=== PATIENT | female | born 1950 | race Caucasian/White ===

== ENCOUNTER 2019-12-17 07:38 | Outpatient (CLI) | payer MEDICARE, SELFPAY ==
--- NOTE | ~2019-12-17 | MM_ITS ---
EXAMINATION: MM screening maria luz BI w mansi HISTORY: Screening TECHNIQUE: Craniocaudal and mediolateral oblique 3-D tomosynthesis images were obtained and synthetic 2-D images were generated. CAD analysis was submitted and interpreted. COMPARISON: No prior mammogram is available for comparison at this institution. BREAST PARENCHYMAL COMPOSITION: Breast composed of scattered areas of fibroglandular density. FINDINGS: There is a new cluster of calcifications in the upper outer quadrant of the right breast, p osterior third. There are decreased clustered calcifications in the lower inner quadrant of the left breast at the prior biopsy site. There are no suspicious masses or architectural distortion. IMPRESSION: 1. New cluster of nonspecific right breast calcifications, upper outer quadrant. 2. Magnification views are recommended. BI-RADS Category 0: Incomplete: Needs additional imaging evaluation. Reviewed, dictated and finalized at location A. IMPRESSION: 1. New cluster of nonspecific right breast calcifications, upper outer quadrant . 2. Magnification views are recommended. BI-RADS Category 0: Incomplete: Needs additional imaging evaluation.
== END 2019-12-17 07:39 | disposition home or self-care (01) ==
LOC: ANHIMG 07:46
PROVIDERS: PCP Family Medicine; Visit Provider Nurse Practitioner Obstetrics & Gynecology
DX: Z12.31 Encounter for screening mammogram for malignant neoplasm of breast (principal); R92.8 Other abnormal and inconclusive findings on diagnostic imaging of breast
CPT/HCPCS: 77063; 77067

== ENCOUNTER 2020-01-10 11:19 | Outpatient (CLI) | payer MEDICARE, SELFPAY ==
--- NOTE | ~2020-01-10 | MM_ITS ---
EXAMINATION: MM diagnostic mammo unilat RT HISTORY: Indeterminate right breast calcifications on screening mammogram TECHNIQUE: Additional images of the right breast were performed. CAD analysis was submitted and inter preted. COMPARISON: 12/17/2019, 09/20/2018, 07/30/2016, 07/29/2015 FINDINGS: Grouped, coarse heterogeneous calcifications are present in the posterior third of the uppe r outer quadrant of the breast at the 11:00 location 12 cm from the nipple. No associated mass is davin ntified. IMPRESSION: 1. Suspicious right breast calcifications. 2. Stereotactic right breast biopsy is recommended. BI-RADS category 4, suspicious findings. Reviewed, dictated and finalized at location A.
== END 2020-01-10 11:20 | disposition home or self-care (01) ==
PROVIDERS: PCP Family Medicine; Visit Provider Nurse Practitioner Obstetrics & Gynecology
DX: R92.8 Other abnormal and inconclusive findings on diagnostic imaging of breast (principal)
CPT/HCPCS: 77065

== ENCOUNTER → 2021-07-30 10:19 | Outpatient (CLI) | payer MEDICARE, SELFPAY ==
--- NOTE | ~2021-07-30 | XR_ITS ---
EXAMINATION: XR hand RT min 3V DATE: 07/30/2021 10:40 INDICATION: Right hand pain. TECHNIQUE: 3 views of right hand were obtained. COMPARISON: None. FINDINGS: Bone alignment is normal. No fracture. There is severe osteoarthritis of first carpometacar pal joint, mild osteoarthritis of all of the metacarpophalangeal joints, and moderate osteoarthritis of fourth distal interphalangeal joint. There is severe osteoarthritis of all of the other interphala ngeal joints. IMPRESSION: 1. Polyarticular osteoarthritis. Reviewed, dictated and finalized at location A.
--- NOTE | ~2021-07-30 | XR_ITS ---
XR knee RT min 4V 07/30/2021 10:39 Indication: Right knee pain Procedure: 4 views right knee Comparison: No prior studies for comparison. Findings: There is mild-moderate osteoarthritis of the right knee. No fracture or traumatic malalignm ent. Small joint effusion. No foreign bodies. Impression: 1: Mild-moderate osteoarthritis of the right knee. 2: Small effusion. Reviewed, dictated and finalized at location B. Impression: 1: Mild-moderate osteoarthritis of the right knee. 2: Small effusion.
== END ==
PROVIDERS: PCP Family Medicine; Visit Provider Family Medicine
DX: M18.11 Unilateral primary osteoarthritis of first carpometacarpal joint, right hand (principal); M19.041 Primary osteoarthritis, right hand; M17.11 Unilateral primary osteoarthritis, right knee; M25.461 Effusion, right knee
CPT/HCPCS: 73130; 73564

== ENCOUNTER 2021-12-08 00:24 | Day surgery (SDC) | payer MEDICARE, SELFPAY ==
[2021-11-24 15:09] VITALS: BMI 37.3
[2021-12-08 11:24] VITALS: BP 149/82; PULSE 87; RESP 18; TEMP 36.4; O2SAT 99
[2021-12-08] MEDS: LACTATED RINGERS 1,000 ML 150 ML IV CONT (11:39)
[2021-12-08 11:45] LABS: Glucose Point of Care 113 mg/dl (65-105)
--- NOTE | 2021-12-08 12:04 | WPDANESEPPF ---
Anes - Initial Pre Proc Eval Procedure: Operation Date: 12/08/21 12:30 Proposed Procedures p Screening Colonoscopy - Noman Solomon MD Date/Time: 12/08/21 12:04 Surgeon: Noman Solomon MD Pre Op Diagnosis: hx colon polyps Patient Data Age: 71 Gender: F Height: 1.6 m Weight: 92 kg Last Vital Signs Temp 97.5 F L 12/08/21 11:24 Pulse 87 12/08/21 11:24 Resp 18 12/08/21 11:24 BP 149/82 H 12/08/21 11:24 Pulse Ox 99 12/08/21 11:24 O2 Del Method Room Air 12/08/21 11:24 Allergies Allergy/AdvReac Type Severity Reaction Status Date / Time Sulfa (Sulfonamide Allergy Unknown Unknown Verified 12/08/21 11:22 Antibiotics) Home Medications Medication Instructions Recorded Confirmed Type cyanocobalamin (vitamin B-12) 1,000 mcg PO DAILY #30 tabs 04/16/20 11/24/21 Rx 1,000 mcg tablet cholecalciferol (vitamin D3) 50 2,000 unit PO DAILY 08/28/20 11/24/21 History mcg (2,000 unit) tablet (Vitamin D3) atorvastatin 10 mg tablet 10 mg PO DAILY #90 tabs 07/30/21 11/24/21 Rx hydrochlorothiazide 12.5 mg capsule 12.5 mg PO DAILY #90 caps 07/30/21 11/24/21 Rx irbesartan 150 mg tablet 150 mg PO DAILY #90 tabs 07/30/21 11/24/21 Rx metformin 500 mg tablet,extended 1,000 mg PO BID #360 tabs 07/30/21 11/24/21 Rx release 24 hr valacyclovir 1 gram tablet 1,000 mg PO .COMPLEX #20 tabs 09/09/21 11/24/21 Rx Laboratory Tests 12/08/21 11:42 POC Capillary Glucose 113 mg/dl H mg/dl (65-105) Patient hx anesthesia problems: none Family hx anesthesia problems: none Results Review: All pre-operative results and documents have been reviewed as part of the pre-operative evaluation. [facility] Past Medical History Medical History (Updated 08/25/21 @ 13:47 by Khai Martinez MD) Arthritis BMI 35.0-35.9,adult BMI 36.0-36.9,adult BMI 37.0-37.9, adult Breast cancer screening by mammogram mammogram on 03/02/2021 was negative. Chronic pain of right knee X-ray of the right knee on 07/30/2021 with mild osteoarthritis with small effusion. Diabetes Fever blister Hand arthritis Obesity (BMI 30-39.9) Pain in right hand Polyp of colon Screening for diabetic retinopathy (09/23/20) no diabetic retinopathy on 09/23/2020. Cataract noted. Seasonal allergic rhinitis Weakness of right hand Surgical History Surgical History History of breast surgery History of endometrial ablation History of hysterectomy History of hysteroscopy Family History Family History Mother Skin cancer Hypertension Heart disease Father Family history of congestive heart failure, Onset Age: 91 Malignant neoplasm of prostate Social History Social History Smoking status: Never smoker Alcohol intake: current Alcohol use details: socially Substance use: never Substance use type: does not use Living arrangements: with family Spiritual care concerns: No Anes - Eval Final PreProcedure Day of Procedure 12/08/21 12:04 Patient weight: obese Heart: regular rate and rhythm Lungs: clear to auscultation Airway: Mallampati scale class II Neurological: alert and oriented Last oral intake: >/= 8 hours ASA classification: III Emergent: no Anesthetic plan: proceed Anesthesia type and monitoring: general GIVS and standard monitoring Results Review: All pre-operative results and documents have been reviewed as part of the pre-operative evaluation. Informed Consent: The patient's anesthetic plan and its attendant risks and benefits were discussed with the patient/family/POA. Questions were solicited and answers provided to the satisfaction of the patient/family/POA.
--- NOTE | 2021-12-08 12:29 | PM.HPGS ---
History of Present Illness History of Present Illness Consent: Risks, benefits, and alternatives have been discussed and questions answered. Patient agrees to proceed with procedure. Chief complaint: hx colon polyps Narrative: Meg Ruffin is a 71 year old female here for colonoscopy, last one 10 years ago Review of Systems Constitutional: Constitutional: Denies headache(s) and Denies weakness Eyes: Eyes: Denies blurry vision ENT: Reports Normal hearing present, Denies headache(s) and Denies neck pain Cardiovascular: Cardiovascular: Denies chest pain and Denies dyspnea Respiratory: Respiratory: Denies dyspnea Gastrointestinal: Gastrointestinal: Reports no additional gastrointestinal complaints Genitourinary: Genitourinary: Denies dysuria Musculoskeletal: Musculoskeletal: Denies neck pain Integumentary/Breasts: Skin/Breast: Denies dry skin Neurologic: Reports Normal hearing present, Denies headache(s) and Denies weakness Psychiatric: Psychiatric: Denies anxiety Endocrine: Endocrine: Denies change in body appearance Hematologic/Lymphatic: Hematologic/Lymphatic: Denies easy bleeding Allergic/Immunologic: Allergic/Immunologic: Denies urticaria PMFSH Past Medical History Medical History (Updated 12/08/21 @ 12:30 by Noman Solomon MD) Arthritis BMI 35.0-35.9,adult BMI 36.0-36.9,adult BMI 37.0-37.9, adult Breast cancer screening by mammogram mammogram on 03/02/2021 was negative. Chronic pain of right knee X-ray of the right knee on 07/30/2021 with mild osteoarthritis with small effusion. Colon cancer screening Diabetes Fever blister Hand arthritis Obesity (BMI 30-39.9) Pain in right hand Polyp of colon Screening for diabetic retinopathy (09/23/20) no diabetic retinopathy on 09/23/2020. Cataract noted. Seasonal allergic rhinitis Weakness of right hand Surgical History Surgical History History of breast surgery History of endometrial ablation History of hysterectomy History of hysteroscopy Family History Family History Mother Skin cancer Hypertension Heart disease Father Family history of congestive heart failure, Onset Age: 91 Malignant neoplasm of prostate Social History Social History Smoking status: Never smoker Alcohol intake: current Alcohol use details: socially Substance use: never Substance use type: does not use Living arrangements: with family Spiritual care concerns: No Meds Home Medications and Allergies Home Medications Medication Instructions Recorded Confirmed Type cyanocobalamin (vitamin B-12) 1,000 mcg PO DAILY #30 tabs 04/16/20 11/24/21 Rx 1,000 mcg tablet cholecalciferol (vitamin D3) 50 2,000 unit PO DAILY 08/28/20 11/24/21 History mcg (2,000 unit) tablet (Vitamin D3) atorvastatin 10 mg tablet 10 mg PO DAILY #90 tabs 07/30/21 11/24/21 Rx hydrochlorothiazide 12.5 mg capsule 12.5 mg PO DAILY #90 caps 07/30/21 11/24/21 Rx irbesartan 150 mg tablet 150 mg PO DAILY #90 tabs 07/30/21 11/24/21 Rx metformin 500 mg tablet,extended 1,000 mg PO BID #360 tabs 07/30/21 11/24/21 Rx release 24 hr valacyclovir 1 gram tablet 1,000 mg PO .COMPLEX #20 tabs 09/09/21 11/24/21 Rx Allergies Allergy/AdvReac Type Severity Reaction Status Date / Time Sulfa (Sulfonamide Allergy Unknown Unknown Verified 12/08/21 11:22 Antibiotics) Vital Signs Vital Signs - 24 hr 12/08/21 11:24 Temperature 97.5 F L Pulse Rate 87 Respiratory Rate 18 Blood Pressure 149/82 H Pulse Oximetry 99 Oxygen Delivery Room Air Exam Const: General: comfortable and no acute distress HENMT: General nose exam: Normal nares present Eyes: General: appearance normal, both eyes and all related structures Neck: Neck: no JVD Resp: Auscultation: clear to auscultation norma
[2021-12-08 13:08] VITALS: BP 134/70; PULSE 83; RESP 16; O2SAT 98
[2021-12-08 13:18] VITALS: BP 121/72; PULSE 81; RESP 17; O2SAT 98
[2021-12-08 13:28] VITALS: BP 125/74; PULSE 82; RESP 19; O2SAT 99
== END 2021-12-08 13:45 | disposition home or self-care (01) ==
PROVIDERS: PCP Family Medicine; Visit Provider Internal Medicine Gastroenterology
PROC: 0DJD8ZZ Inspection of Lower Intestinal Tract, Via Natural or Artificial Opening Endoscopic (ICD-10-PCS; CPT 45378; principal; 2021-12-08 12:30)
DX: Z12.11 Encounter for screening for malignant neoplasm of colon (principal); D12.2 Benign neoplasm of ascending colon; D12.4 Benign neoplasm of descending colon; K64.8 Other hemorrhoids; K57.30 Diverticulosis of large intestine without perforation or abscess without bleeding; M19.90 Unspecified osteoarthritis, unspecified site; E11.9 Type 2 diabetes mellitus without complications; E11.319 Type 2 diabetes mellitus with unspecified diabetic retinopathy without macular edema; Z79.84 Long term (current) use of oral hypoglycemic drugs; E66.9 Obesity, unspecified; Z68.35 Body mass index [BMI] 35.0-35.9, adult
CPT/HCPCS: 45385; 82948; 88305; J2001; J2704; J7120

== ENCOUNTER 2022-06-01 08:15 | Emergency (ER) | payer MEDICARE, SELFPAY ==
[2022-06-01 08:25] VITALS: BP 145/72; PULSE 77; RESP 16; TEMP 36.1; O2SAT 96
--- NOTE | 2022-06-01 08:25 | ED.GENADULT ---
HPI - General Adult General Chief complaint: Dizziness Stated complaint: Dizziness Time Seen by Provider: 06/01/22 08:25 Source: patient, RN notes reviewed and old records reviewed Mode of arrival: ambulatory Limitations: no limitations History of Present Illness HPI narrative: 71-year-old woman presents to the [facility] with complaints of intermittent dizziness for 2 days. Patient states it feels like the room spinning when she lays down. Started when she was going to bed Tuesday night. Denies any nausea or vomiting. Denies chest pain or shortness of breath. States it has been intermittent. Denies symptoms while sitting in clinic. Denies any neurologic symptoms Onset (ago): day(s) (2) Related Data Home Medications Medication Instructions Recorded Confirmed cholecalciferol (vitamin D3) 50 2,000 unit PO DAILY 08/28/20 06/01/22 mcg (2,000 unit) tablet (Vitamin D3) Allergies Allergy/AdvReac Type Severity Reaction Status Date / Time Sulfa (Sulfonamide Allergy Unknown Unknown Verified 03/19/22 08:01 Antibiotics) Review of Systems Review of Systems: All systems reviewed & are unremarkable except as noted in HPI and below Constitutional: Constitutional: Reports no additional constitutional complaints and Denies headache(s) Eyes: Eyes: Reports no additional eye complaints ENT: Reports as per HPI Cardiovascular: Cardiovascular: Reports no additional cardiovascular complaints, Denies chest pain and Denies dyspnea Respiratory: Respiratory: Reports no additional respiratory complaints, Denies chest congestion, Denies cough and Denies dyspnea Gastrointestinal: Gastrointestinal: Reports no additional gastrointestinal complaints, Denies abdominal pain, Denies nausea and Denies vomiting Musculoskeletal: Musculoskeletal: Reports no additional musculoskeletal complaints Integumentary/Breasts: Skin/Breast: Reports system reviewed and no additional complaints, except as docu Neurologic: Reports system reviewed and no additional complaints, except as documented Psychiatric: Psychiatric: Reports no additional psychiatric complaints Allergic/Immunologic: Allergic/Immunologic: Reports no additional allergic/immunologic complaints PMFSH Past Medical History Medical History Arthritis BMI 35.0-35.9,adult BMI 36.0-36.9,adult BMI 37.0-37.9, adult Breast cancer screening by mammogram mammogram on 03/02/2021 was negative. Chronic pain of right knee X-ray of the right knee on 07/30/2021 with mild osteoarthritis with small effusion. Colon cancer screening COVID-19 (~09/2021) fully vaccinated and moderate illness Diabetes Encounter for hepatitis C screening test for low risk patient Fever blister Hand arthritis Obesity (BMI 30-39.9) Pain in right hand Polyp of colon Repeat colonoscopy 12/08/2021 with 1 small 4 mm polyp of the descending colon with recheck in 5 years. Screening for breast cancer Screening for diabetic retinopathy (09/23/20) no diabetic retinopathy on 09/23/2020. Cataract noted. Seasonal allergic rhinitis Weakness of right hand Surgical History Surgical History H/O gynecological procedure 05/25/12 novasure ablation, hscope, d&c, polypectomy History of breast surgery 03/14/2019 - R breast biopsy - benign 03/14/2018 - L breast biopsy - benign History of endometrial ablation History of hysterectomy History of hysteroscopy Family History Family History Mother Skin cancer Hypertension Heart disease Father Family history of congestive heart failure, Onset Age: 91 Malignant neoplasm of prostate Social History Social History Smoking status: Never smoker Alcohol intake: current Alcohol use details: socially Substance use: never Substance use type: does
[2022-06-01 08:27] VITALS: BP 145/72; PULSE 77; RESP 16; TEMP 36.1; O2SAT 96
== END 2022-06-01 09:00 | disposition home or self-care (01) ==
PROVIDERS: Emergency Provider Nurse Practitioner; PCP Family Medicine
DX: R42 Dizziness and giddiness (principal); H65.01 Acute serous otitis media, right ear; M19.90 Unspecified osteoarthritis, unspecified site; M19.041 Primary osteoarthritis, right hand; E66.9 Obesity, unspecified; Z68.36 Body mass index [BMI] 36.0-36.9, adult
CPT/HCPCS: 99213; G0463

== ENCOUNTER 2022-08-02 11:15 | Outpatient (CLI) | payer MEDICARE, SELFPAY ==
[2022-08-02 11:56] LABS: Basophils Percent Auto 0.5 % (0.2-1.2); Eosinophils Absolute Auto 0.1 K/mm3 (0-0.3); Eosinophils Percent Auto 2.3 % (0-4.4); Hematocrit 38.4 % (37.0-47.0); Hemoglobin 12.2 g/dL (12.0-15.0); Immature Granulocyte Absolute 0.01 K/mm3 (0.00-0.031); Immature Granulocyte Percent A 0.2 % (0-0.5); Lymphocytes Absolute Auto 1.92 K/mm3 (0.9-3.2); Lymphocytes Percent Auto 43.4 % (18.3-44.2); Mean Corpuscular HGB Conc 31.8 g/dl (32-36); Mean Corpuscular Hemoglobin 28.4 pg (26-34); Mean Corpuscular Volume 89.5 fl (80-100); Mean Platelet Volume 10.3 fl (7.4-10.4); Monocytes Absolute Auto 0.2 K/mm3 (0.1-0.6); Neutrophils Absolute Auto 2.2 K/mm3 (1.3-6.7); Neutrophils Percent Auto 48.6 % (45.5-73.1); Platelet Count Result 197 k/mm3 (150-375); Red Blood Count 4.29 M/mm3 (4.2-5.4); Red Cell Distribution Width 13.2 % (11.5-14.5); White Blood Count 4.4 K/mm3 (4.5-10.0)
[2022-08-02 12:06] LABS: Sodium 138 mmol/L (137-145)
[2022-08-02 12:08] LABS: Alanine Aminotransferase 31 U/L (6-35); Albumin Level 4.4 g/dL (3.5-5.1); Alkaline Phosphatase 44 U/L (38-126); Anion Gap 3 mmol/L (8-16); Aspartate Amino Transferase 33 U/L (14-36); Bilirubin,Total 1.1 mg/dL (0.2-1.3); Blood Urea Nitrogen 13 mg/dL (7-17); Calcium 9.1 mg/dL (8.4-10.2); Carbon Dioxide 35 mmol/L (22-30); Chloride 100 mmol/L (98-107); Cholesterol 171 mg/dL (0-200); Estimated Glomerular Filt Rate > 60; Glucose 105 mg/dL (65-110); HDL Direct 63 mg/dL; Potassium 3.9 mmol/L (3.4-5.0); Triglycerides 154 mg/dL (<150)
[2022-08-02 12:10] LABS: Hemoglobin A1C 6.2 % (<5.7)
[2022-08-02 12:18] LABS: LDL Cholesterol Direct 81 mg/dL
[2022-08-02 13:13] LABS: Hepatitis C Virus Antibody Negative (Negative)
[2022-08-06 11:16] LABS: Vitamin D 1,25 (OH)2 Total 24 pg/mL (18-72); Vitamin D2 1,25 (OH)2 <8 pg/mL; Vitamin D3 1,25 (OH)2 24 pg/mL
== END 2022-08-02 11:16 | disposition home or self-care (01) ==
PROVIDERS: PCP Family Medicine; Visit Provider Family Medicine
DX: E78.2 Mixed hyperlipidemia (principal); E11.9 Type 2 diabetes mellitus without complications; Z11.59 Encounter for screening for other viral diseases; D51.9 Vitamin B12 deficiency anemia, unspecified; E55.9 Vitamin D deficiency, unspecified
CPT/HCPCS: 36415; 80048; 80061; 80076; 82652; 83036; 85025; 86803

== ENCOUNTER 2023-01-05 11:10 | Outpatient (CLI) | payer MEDICARE, SELFPAY ==
[2023-01-05 12:05] LABS: Appearance Urine Clear (Clear); Bilirubin Urine Negative (Negative); Blood Urine Negative (Negative); Color Urine Yellow (Yellow); Glucose Urine UA Negative (Negative); Ketones Urine Negative (Negative); Leukocyte Esterase Ur Negative LEU/UL (NEGATIVE); Nitrate Urine Negative (Negative); Protein Urine Negative (Negative); Specific Grav Ur 1.014 (1.001-1.035); Urobilinogen Urine 0.2 mg/dL (<2.0); pH Urine 5.5 (5.0-9.0)
[2023-01-05 12:11] LABS: Add Urine Microscopic? NO
[2023-01-05 12:25] LABS: Alanine Aminotransferase 22 U/L (6-35); Albumin Level 4.4 g/dL (3.5-5.1); Alkaline Phosphatase 46 U/L (38-126); Anion Gap 5 mmol/L (8-16); Aspartate Amino Transferase 27 U/L (14-36); Bilirubin,Total 1.3 mg/dL (0.2-1.3); Blood Urea Nitrogen 14 mg/dL (7-17); Calcium 9.4 mg/dL (8.4-10.2); Carbon Dioxide 32 mmol/L (22-30); Chloride 100 mmol/L (98-107); Cholesterol 180 mg/dL (0-200); Estimated Glomerular Filt Rate > 60; Glucose 110 mg/dL (65-110); HDL Direct 57 mg/dL; Potassium 4.1 mmol/L (3.4-5.0); Sodium 137 mmol/L (137-145); Triglycerides 115 mg/dL (<150)
[2023-01-05 12:32] LABS: LDL Cholesterol Direct 94 mg/dL
[2023-01-05 12:45] LABS: Creatinine Urine 80.9 mg/dL
[2023-01-05 12:52] LABS: MALB Creatinine Ratio < 7.4 mg/g (0-30); Microalbumin Urine Random < 6.0 mg/L (0-16.7)
== END 2023-01-05 11:11 | disposition home or self-care (01) ==
LOC: ANHLAB 11:11
PROVIDERS: PCP Family Medicine; Visit Provider Family Medicine
DX: E78.2 Mixed hyperlipidemia (principal); E11.9 Type 2 diabetes mellitus without complications; D51.9 Vitamin B12 deficiency anemia, unspecified
CPT/HCPCS: 36415; 80048; 80061; 80076; 81003; 82043; 82607

== ENCOUNTER 2023-08-05 10:53 | Outpatient (CLI) | payer MEDICARE, SELFPAY ==
[2023-08-05 11:35] LABS: Eosinophils Absolute Auto 0.1 K/mm3 (0-0.3); Eosinophils Percent Auto 1.8 % (0-4.4); Hematocrit 36.8 % (37.0-47.0); Hemoglobin 11.9 g/dL (12.0-15.0); Immature Granulocyte Absolute 0.01 K/mm3 (0.00-0.031); Immature Granulocyte Percent A 0.2 % (0-0.5); Lymphocytes Absolute Auto 1.95 K/mm3 (0.9-3.2); Lymphocytes Percent Auto 34.2 % (18.3-44.2); Mean Corpuscular HGB Conc 32.3 g/dl (32-36); Mean Corpuscular Hemoglobin 28.7 pg (26-34); Mean Corpuscular Volume 88.7 fl (80-100); Mean Platelet Volume 10.9 fl (7.4-10.4); Monocytes Absolute Auto 0.3 K/mm3 (0.1-0.6); Monocytes Percent Auto 5.3 % (2.6-8.5); Neutrophils Absolute Auto 3.4 K/mm3 (1.3-6.7); Neutrophils Percent Auto 58.5 % (45.5-73.1); Platelet Count Result 181 k/mm3 (150-375); Red Blood Count 4.15 M/mm3 (4.2-5.4); Red Cell Distribution Width 13.6 % (11.5-14.5); White Blood Count 5.7 K/mm3 (4.5-10.0)
[2023-08-05 11:50] LABS: Alanine Aminotransferase 16 U/L (6-35); Albumin Level 4.5 g/dL (3.5-5.1); Alkaline Phosphatase 43 U/L (38-126); Anion Gap 6 mmol/L (4-12); Aspartate Amino Transferase 27 U/L (14-36); Bilirubin,Total 1.4 mg/dL (0.2-1.3); Blood Urea Nitrogen 16 mg/dL (7-17); Calcium 9.4 mg/dL (8.4-10.2); Carbon Dioxide 28 mmol/L (22-30); Chloride 103 mmol/L (98-107); Cholesterol 175 mg/dL (0-200); Estimated Glomerular Filt Rate > 60; Glucose 101 mg/dL (65-110); HDL Direct 66 mg/dL; Sodium 137 mmol/L (137-145); Triglycerides 101 mg/dL (<150)
[2023-08-05 12:00] LABS: Hemoglobin A1C 6.2 % (<5.7)
[2023-08-05 12:01] LABS: LDL Cholesterol Direct 94 mg/dL
[2023-08-05 12:51] LABS: Vitamin B12 > 1000.0 pg/mL (239-931)
[2023-08-08 10:53] LABS: Vitamin D 1,25 (OH)2 Total 49 pg/mL (18-72); Vitamin D2 1,25 (OH)2 <8 pg/mL; Vitamin D3 1,25 (OH)2 49 pg/mL
== END 2023-08-05 10:54 | disposition home or self-care (01) ==
LOC: ANHLAB 10:56
PROVIDERS: PCP Family Medicine; Visit Provider Family Medicine
DX: E55.9 Vitamin D deficiency, unspecified (principal); D51.9 Vitamin B12 deficiency anemia, unspecified; E78.2 Mixed hyperlipidemia; E11.9 Type 2 diabetes mellitus without complications
CPT/HCPCS: 36415; 80048; 80061; 80076; 82607; 82652; 83036; 85025

== ENCOUNTER 2024-03-16 09:34 | Outpatient (CLI) | payer MEDICARE, SELFPAY ==
[2024-03-16 10:24] LABS: Basophils Percent Auto 0.2 % (0.2-1.2); Eosinophils Absolute Auto 0.1 K/mm3 (0-0.3); Eosinophils Percent Auto 1.9 % (0-4.4); Hematocrit 37.1 % (37.0-47.0); Hemoglobin 11.9 g/dL (12.0-15.0); Immature Granulocyte Absolute 0.01 K/mm3 (0.00-0.031); Immature Granulocyte Percent A 0.2 % (0-0.5); Lymphocytes Absolute Auto 1.78 K/mm3 (0.9-3.2); Lymphocytes Percent Auto 41.4 % (18.3-44.2); Mean Corpuscular HGB Conc 32.1 g/dl (32-36); Mean Corpuscular Hemoglobin 28.1 pg (26-34); Mean Corpuscular Volume 87.7 fl (80-100); Mean Platelet Volume 10.4 fl (7.4-10.4); Monocytes Absolute Auto 0.2 K/mm3 (0.1-0.6); Monocytes Percent Auto 4.2 % (2.6-8.5); Neutrophils Absolute Auto 2.2 K/mm3 (1.3-6.7); Neutrophils Percent Auto 52.1 % (45.5-73.1); Platelet Count Result 174 k/mm3 (150-375); Red Blood Count 4.23 M/mm3 (4.2-5.4); Red Cell Distribution Width 13.3 % (11.5-14.5); White Blood Count 4.3 K/mm3 (4.5-10.0)
[2024-03-16 10:29] LABS: Add Urine Microscopic? NO; Appearance Urine Clear (Clear); Bilirubin Urine Negative (Negative); Blood Urine Negative (Negative); Color Urine Yellow (Yellow); Glucose Urine UA Negative (Negative); Ketones Urine Negative (Negative); Leukocyte Esterase Ur Negative LEU/UL (Negative); Nitrate Urine Negative (Negative); Protein Urine Negative (Negative); Urobilinogen Urine 0.2 mg/dL (<2.0); pH Urine 5.5 (5.0-9.0)
[2024-03-16 10:40] LABS: Alanine Aminotransferase 18 U/L (6-35); Albumin Level 4.2 g/dL (3.5-5.1); Alkaline Phosphatase 43 U/L (38-126); Anion Gap 0 mmol/L (4-12); Aspartate Amino Transferase 24 U/L (14-36); Bilirubin,Total 1.2 mg/dL (0.2-1.3); Blood Urea Nitrogen 19 mg/dL (7-17); Calcium 9.4 mg/dL (8.4-10.2); Carbon Dioxide 33 mmol/L (22-30); Chloride 102 mmol/L (98-107); Cholesterol 160 mg/dL (0-200); Estimated Glomerular Filt Rate > 60; Glucose 106 mg/dL (65-110); HDL Direct 61 mg/dL; Potassium 4.2 mmol/L (3.4-5.0); Sodium 135 mmol/L (137-145); Triglycerides 101 mg/dL (<150)
[2024-03-16 10:51] LABS: Iron 60 ug/dL (37-170); LDL Cholesterol Direct 71 mg/dL
[2024-03-16 11:01] LABS: Percent Iron Saturation 15 % (20-50); TOTAL IRON BINDING CAPACITY 406 ug/dL (261-462)
[2024-03-16 11:29] LABS: Vitamin B12 > 1000.0 pg/mL (239-931)
[2024-03-16 12:26] LABS: Hemoglobin A1C 6.5 % (<5.7)
[2024-03-16 14:41] LABS: Creatinine Urine 46.5 mg/dL
[2024-03-16 14:43] LABS: MALB Creatinine Ratio < 12.9 mg/g (0-30); Microalbumin Urine Random < 6.0 mg/L (0-16.7)
== END 2024-03-16 09:35 | disposition home or self-care (01) ==
PROVIDERS: PCP Family Medicine; Visit Provider Family Medicine
DX: D51.9 Vitamin B12 deficiency anemia, unspecified (principal); E78.2 Mixed hyperlipidemia; E11.9 Type 2 diabetes mellitus without complications
CPT/HCPCS: 36415; 80048; 80061; 80076; 81003; 82043; 82607; 82728; 83036; 83540; 83550; 85025

== ENCOUNTER 2024-11-07 08:50 | Outpatient (CLI) | payer MEDICARE, SELFPAY ==
--- OUTSIDE RECORDS SUMMARY | 2024-11-07 08:56 | XMS_ITS | Clinical Summary ---
Author Organization [facility] Address [address] [place] [address] Care Team Providers Care Administrator Social Welfare Name Role Phone Isidoro Delarosa MD Primary Care Provider [phone] Allergies Active Allergy Reactions Criticality Noted Date Comments Sulfa (Sulfonamide Antibiotics) Other (See Comments) High 10/24/2018 Medications metFORMIN (GLUCOPHAGE XR) 500 mg Extended Release 24 hour tablet TK 4 TS PO D FOR DM 3 09/09/19 19 Active atorvastatin (LIPITOR) 10 mg tablet TK 1 T PO QD FOR CHOLESTEROL 2 08/27/19 19 Active cholecalcifer ol, vitamin D3, (VITAMIN D3) 1,000 unit Take 1,000 Units by mouth daily. Active cyanocobalami n (VITAMIN B-12) 500 mcg tablet Take 500 mcg by mouth daily. Active irbesartan (AVAPRO) 150 mg tablet 11/21/19 19 Active hydroCHLOROth iazide (MICROZIDE) 12.5 mg capsule hydrochlorothiazide 12.5 mg capsule Active valACYclovir (VALTREX) 1 gram tablet valacyclovir 1 gram tablet TK 2 TS PO BID FOR 1 DAY FOR FEVER BLISTER PRN Active flu vaccine trivalent (65 yr+)(PF)(FLUZ ONE HIGH DOSE) 180 mcg/0.5 mL IM syringe Fluzone High-Dose (PF) 180 mcg/0.5 mL intramuscular syringe Act jc Active Problems Problem Noted Date Diagnosed Date Fibrosis, breast, left 11/28/2018 Microcalcification of left breast on mammogram 0 10/09/2018 Social History Tobacco Use Types Packs/Day Years Used Date Smoking Tobacco: Never Smokeless Tobacco: Never Alcohol Use Standard Drinks/Week Comments Yes 0 (1 standard drink = 0.6 oz pur e alcohol) Comments No Sex and Gender Information Value Date Recorded Sex Assigned at Not on file Legal Sex Female 3:45 PM CDT Gender Identity Not on file Sexual Orientation Not on file Last Filed Vital Signs Vital Sign Reading Time Taken Comments Blood Pressure 106/40 11/28/2018 1:17 PM CDT Pulse 83 11/28/2018 1:17 PM CDT Temperature 36.7 C (98.1 F) 11/28/2018 1:17 PM CDT Respiratory Rate - - Oxygen Saturation 96% 11/28/2018 1:17 PM CDT Inhaled Oxygen Concentration - - Weight 97.1 kg (214 lb 1.6 oz) 11/28/2018 1:17 P M CDT Height 162.6 cm (5' 4) 11/28/2018 1:17 PM CDT Body Mass Index 36.75 11/28/2018 1:17 PM CDT Plan of Treatment Health Maintenance Due Date Last Done Comments DTAP/TDAP/TD VACCINES (1 - Tdap) 11/14/1970 BREAST CANCER SCREENING 1991 COLORECTAL SCREENING 11/14/1996 Colorectal Cancer Screening 11/14/1996 FIT-DNA Q 3 years 11/14/1996 FIT/FOBT Q 1 year 11/14/1996 Flex Sig/CT Colonography Q 5 years 11/14/1996 PNEUMOCOCCAL VACCINE 50+ YEARS (1 of 1 - PCV) 11/15/19 02 ZOSTER VACCINE (1 of 2) 11/14/2001 OSTEOPOROSIS SCREENING 11/14/2016 INFLUENZA VACCINE (#1) 2024 RSV VACCINE (60+ or ) (1 - 1-dose 75+ series) 11/14/2026 Care Teams Administrator Social Welfare Relationship Specialty Start Date End Date Isidoro Delarosa MD [address] [place] [phone] PCP - General Family Practice 10/09/18
--- OUTSIDE RECORDS SUMMARY | 2024-11-07 08:56 | XMS_ITS | Clinical Summary ---
Author Organization [facility] Address [address] [place] [address] Care Team Providers Care Childcare Provider Name Role Phone Isidoro Delarosa MD Primary Care Provider [phone] Patricia Parekh ZOO KEEPER Unavailable [phone] Allergies Active Allergy Reactions Criticality Noted Date Comments Sulfa (Sulfonamide Antibiotics) Other (See comments) High 10/24/2018 Medications atorvastatin (LIPITOR) 10 mg tablet TK 1 T PO QD FOR CHOLESTEROL 08/27/19 19 Active cholecalcifer ol (VITAMIN D-3) 25 mcg (1,000 unit) tablet Take 1,000 Units by mouth daily Active cyanocobalami n (Vitamin B-12) 500 mcg tablet Take 500 mcg by mouth daily Active hydroCHLOROth iazide (MICROZIDE) 12.5 mg capsule hydrochlorothiazide 12.5 mg capsule Active irbesartan (AVAPRO) 150 mg tablet 11/21/19 19 Active metFORMIN XR (GLUCOPHAGE XR) 500 mg 24 hr tablet TK 4 TS PO D FOR DM 09/09/19 19 Active Active Problems No known active problems Encounters Date Type Department Care Team Description 09/26/2024 9:12 AM CDT - 09/26/2024 11:59 PM CDT Hospital Encounter [facility] Advanced Medicine Breast Imaging [facility] ([facility]) [address] [place] [address] Screening mammogram, encounter for Discharge Disposition: Discharge to home or self care from Last 3 Months Surgical History Surgery Date Site/Laterality Comments BREAST BIOPSY OVARIAN CYST REMOVAL 01/05/2005 Left HYSTEROSCOPY 05/08/2012 ENDOMETRIAL ABLATION 05/08/2012 BREAST BIOPSY 02/11/2020 Right Medical History Medical History Date Comments Hypertension Overweight Family History Medical History Relation Name Comments Prostate cancer Father Skin cancer Mother Relation Name Status Comments Father Mother Social History Tobacco Use Types Packs/Day Years Used Date Smoking Tobacco: Never Comments No Sex and Gender Information Value Date Recorded Sex Assigned at Not on file Legal Sex 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 Gender Identity Not on file Sexual Orientation Not on file Obstetrics History Para Term AB IAB SAB Ectopic Multiple Livin g Live Births 0 0 0 0 0 0 0 0 0 0 0 Last Filed Vital Signs Vital Sign Reading Time Taken Comments Blood Pressure - - Pulse - - Temperature - - Respiratory Rate - - Oxygen Saturation - - Inhaled Oxygen Concentration - - Weight 91.6 kg (202 lb) 09/26/2024 9:20 AM CDT Height 157.5 cm (5' 2) 02/04/2020 1:17 PM INJECTION PRESS OPERATOR Body Mass Index 36.95 02/04/2020 1:17 PM INJECTION PRESS OPERATOR Plan of Treatment Health Maintenance Due Date Last Done Comments Colon Cancer Screening-Colonoscopy 1950 Depression Screening 1950 Fall Risk Assessment 1950 Hepatitis C Screening 1950 Osteoporosis Screening-Bone Density Scan 1950 DTaP/Tdap/Td Vaccine (1 - Tdap) 11/14/1962 Hepatitis B Screening 11/14/1969 Zoster Vaccine (1 of 2) 11/14/2001 Well Visit 65+ 11/14/2016 Pneumococcal vaccine 65+ (2 of 2 - PCV20 or PCV21) 01/14/2018 01/14/2017 Influenza Vaccine (#1) 2024 9, 01/14/2017, 02/21/2012 Breast Cancer Screening-Mammogram 09/26/2025 09/26/2024, 09/23/2023, 06/04/2022, Additional history exists Procedures Procedure Name Priority Date/Time Associated Diagnosis Comments SCREENING MAMMOGRAM BILATERAL W GERARD Schedule Routine, Read Routine (OP Routine) 09/26/2024 9:29 AM CDT Screening mammogram, encounter for from Last 3 Months Results * Screening Mammogram Bilateral W Gerard (09/26/2024 9:29 AM CDT) Anatomical Region Laterality Modality Breast Bilateral Mammography Impressions 09/28/2024 9:01 AM CDT Bilateral No evidence of malignancy in either breast. OVERALL BI-RADS FINAL ASSESSMENT: 1 - Negative RECOMMENDATION: Recommend bilateral annual screening mammography. Narrative 09/28/2024 9:01 AM CDT EXAMINATION: Screening Mammogram Bilateral W Gerard: 09/26/2024 COMPARISON: Relevant prior studies available at the time of interpretation were reviewed, including the most recent mammogram on: 09/23/2023. TECHNIQUE: Mammography was performed with 2D and digital breast tomosynthesis (DBT) images. CAD was utilized. BREAST PARENCHYMAL COMPOSITION: There are scattered areas of fibroglandular density. FINDINGS: Bilateral There is no suspicious mass, calcification, or architectural distortion in either breast. us Self Screening Mammogram IMG MAMMO PROCEDURES Fi nal Result from Last 3 Months Insurance [employer] MEDICARE GOLD AET[employer] MEDICARE GOLD Care Teams Childcare Provider Relationship Specialty Start Date End Date Isidoro Delarosa MD [email or web address] [place] [id number] PCP - General Family Medicine 01/15/20 Patricia Parekh NP [email or web address] [address] [place] [id number] Nurse Practitioner Nurse Practitioner 02/04/20
[2024-11-07 09:52] LABS: Hematocrit 37.8 % (37.0-47.0); Hemoglobin 12.0 g/dL (12.0-15.0); Immature Granulocyte Percent A 0.2 % (0-0.5); Lymphocytes Absolute Auto 1.70 K/mm3 (0.9-3.2); Mean Corpuscular HGB Conc 31.7 g/dl (32-36); Mean Corpuscular Hemoglobin 28.3 pg (26-34); Mean Corpuscular Volume 89.2 fl (80-100); Nucleated Red Blood Cells Absolute Auto 0.000 K/mm3 (0.0-0.012); Nucleated Red Blood Cells Perc 0.0 % (0.0-0.2); Platelet Count Result 167 k/mm3 (150-375); Red Blood Count 4.24 M/mm3 (4.2-5.4); White Blood Count 4.5 K/mm3 (4.5-10.0)
[2024-11-07 10:14] LABS: Iron 60 ug/dL (37-170)
[2024-11-07 10:16] LABS: Alanine Aminotransferase 17 U/L (6-35); Albumin Level 4.1 g/dL (3.5-5.1); Alkaline Phosphatase 41 U/L (38-126); Anion Gap 8 mmol/L (4-12); Aspartate Amino Transferase 27 U/L (14-36); Bilirubin,Total 0.9 mg/dL (0.2-1.3); Blood Urea Nitrogen 14 mg/dL (7-17); Calcium 9.3 mg/dL (8.4-10.2); Carbon Dioxide 29 mmol/L (22-30); Chloride 101 mmol/L (98-107); Cholesterol 168 mg/dL (0-200); Estimated Glomerular Filt Rate > 60; Glucose 110 mg/dL (65-110); HDL Direct 61 mg/dL; Potassium 4.1 mmol/L (3.4-5.0); Sodium 138 mmol/L (137-145); Total Protein 6.5 g/dL (6.3-8.2); Triglycerides 116 mg/dL (<150)
[2024-11-07 10:31] LABS: Percent Iron Saturation 17 % (20-50)
[2024-11-07 10:32] LABS: Hemoglobin A1C 6.4 % (<5.7)
[2024-11-07 10:57] LABS: Ferritin 21.00 ng/mL (11.1-264)
[2024-11-07 11:30] LABS: Vitamin B12 > 1000.0 pg/mL (239-931)
[2024-11-14 18:08] LABS: 1,25-Dihydroxy, Vitamin D-2 <10 pg/mL (.); 1,25-Dihydroxy, Vitamin D-3 51 pg/mL (.); Total 1,25-Dihydroxy,Vitamin D 52 pg/mL (.)
== END 2024-11-07 08:51 | disposition home or self-care (01) ==
PROVIDERS: PCP Family Medicine; Visit Provider Family Medicine
DX: E78.2 Mixed hyperlipidemia (principal); E55.9 Vitamin D deficiency, unspecified; E11.9 Type 2 diabetes mellitus without complications; D64.9 Anemia, unspecified
CPT/HCPCS: 36415; 80048; 80061; 80076; 82607; 82652; 82728; 82746; 83036; 83540; 83550; 85025

== ENCOUNTER 2024-12-26 10:19 | Outpatient (CLI) | payer MEDICARE, SELFPAY ==
--- NOTE | ~2024-12-26 | XR_ITS ---
EXAMINATION: XR knee LT min 4V, 12/26/2024 10:35 CDT HISTORY: M25.562 - Pain in left knee, NKI COMPARISON: No comparisons available. Findings: No acute fracture or malalignment. Moderate to severe tricompartmental degenerative changes, small effusions Soft tissues unremarkable. Impression: No acute fracture or malalignment. Reviewed, dictated and finalized at location P. Impression: No acute fracture or malalignment.
--- OUTSIDE RECORDS SUMMARY | 2024-12-26 12:06 | XMS_ITS | Clinical Summary ---
Author Organization [facility] Address [address] [place] [address] Care Team Providers Care Community Living Instructor Name Role Phone Isidoro Delarosa MD Primary Care Provider [phone] Allergies Active Allergy Reactions Criticality Noted Date [...] - 1-dose 75+ series) 11/14/2026 Care Teams Community Living Instructor Relationship Specialty Start Date End Date Isidoro Delarosa MD [address] [place] [phone] PCP - General Family Practice 10/09/18
--- OUTSIDE RECORDS SUMMARY | 2024-12-26 12:06 | XMS_ITS | Clinical Summary ---
Author Organization [facility] Address [address] [place] [address] Care Team Providers Care Marketing Area Manager Name Role Phone Isidoro Delarosa MD Primary Care Provider [phone] Patricia Parekh SINGING TEACHER Unavailable [phone] Allergies Active Allergy Reactions Criticality Noted Date [...] - 09/26/2024 11:59 PM CDT Hospital Encounter [facility] Advanced Medicine Breast Imaging [facility] ([facility]) [address] [place] [address] Screening mammogram, encounter for Discharge [...] on file Legal Sex Female 12:38 AM GRIP WRAPPER Gender Identity Not on file Sexual Orientation [...] 157.5 cm (5' 2) 02/04/2020 1:17 PM GRIP WRAPPER Body Mass Index 36.95 02/04/2020 1:17 PM GRIP WRAPPER Plan of Treatment Health Maintenance Due Date [...] MEDICARE GOLD AET[employer] MEDICARE GOLD Care Teams Marketing Area Manager Relationship Specialty Start Date End Date Isidoro Delarosa MD [address] [address] [place] [id number] PCP - General Family Medicine 01/15/20 Patricia Parekh NP [address] [place] [id number] Nurse Practitioner Nurse Practitioner 02/04/20
== END 2024-12-26 10:20 | disposition home or self-care (01) ==
PROVIDERS: PCP Family Medicine; Visit Provider Family Medicine
DX: M17.12 Unilateral primary osteoarthritis, left knee (principal); G89.29 Other chronic pain
CPT/HCPCS: 73564